=== PATIENT | male | born 1990 | race Caucasian/White ===

== ENCOUNTER 2016-09-15 09:32 | Emergency (ER) | payer OTHER ==
[~2016-09-15] VITALS: Ht 165.1 cm; Wt 59.0 kg
[2016-09-15 09:34] VITALS: BP 116/78
[2016-09-15] MEDS ORDERED: DIPH,PERTUSS(ACELL),TET VAC/PF 0.5 ML IM-VACC ONE ×2 (10:00→10:06)
== END 2016-09-15 11:20 | disposition home or self-care (01) ==
LOC: ED 11:17
DX: S01.01XA Laceration without foreign body of scalp, initial encounter (principal); X58.XXXA Exposure to other specified factors, initial encounter; Y93.89 Activity, other specified; Y99.8 Other external cause status; Y92.89 Other specified places as the place of occurrence of the external cause
CPT/HCPCS: 12001; 90471; 90715